=== PATIENT | male | born 1990 | race Caucasian/White ===

== ENCOUNTER 2018-03-24 21:08 | Emergency (ER) | payer MEDICAID ==
[~2018-03-24] VITALS: Ht 167.6 cm; Wt 72.6 kg
[~2018-03-24 21:08] MED LIST: CRUTCH4 USE; Cleocin HCl300 MG PO; HYDACE5 PO; NAPR500 PO; Norco 5-325 Ta1 EACH PO; PENVK500 PO; TRAM50 PO
== END 2018-03-24 23:05 | disposition home or self-care (01) ==
LOC: ER 21:08
DX: Z20.2 Contact with and (suspected) exposure to infections with a predominantly sexual mode of transmission (principal); F17.210 Nicotine dependence, cigarettes, uncomplicated
CPT/HCPCS: 96372; 99283; J0561; J0696

== ENCOUNTER 2019-05-23 04:02 | Emergency (ER) | payer OTHER | END 2019-05-23 05:00 | disposition left against medical advice (07) | LOC: ER 04:02 | DX: Z53.21 Procedure and treatment not carried out due to patient leaving prior to being seen by health care provider (principal) ==

== ENCOUNTER 2023-05-21 07:11 | Day surgery (SDC) | payer OTHER ==
[~2023-05-21] VITALS: Ht 167.6 cm; Wt 95.1 kg
[2023-05-21] VITALS (8 sets, daily range): BP systolic 114–158; BP diastolic 75–98
--- NOTE | 2023-05-21 08:14 | NUR ---
History, Chart, Medications and Allergies reviewed before start of procedure. Lungs clear T/O to Auscultation. Patient confirms NPO status and agrees with scheduled surgery. Pre-Op teaching done. Pt verbalizes understanding. Pre-Op teaching done. Pt verbalizes understanding. Patient reports completing Chlorhexadine shower X2 prior to admission to hospital.
--- NOTE | 2023-05-21 10:24 | NUR ---
REPORT RECIEVED. PT SITTING UP IN BED. VSS. ON ROOM AIR. DENIES PAIN
--- NOTE | 2023-05-21 10:34 | NUR ---
PT TOLERATING PO FLUDIS AND CHEESE/CRACKERS. REPORTS DISCOMFORT. PAIN MEDICATION ORDERS REVIEWED. VSS. ON ROOM AIR
--- NOTE | 2023-05-21 10:51 | NUR ---
Patient up to Ambulate independently. Gait steady. Discharge instructions reviewed with patient and Patient verbalizes understanding. Copy given to patient to take home. Dressing to procedure site clean, dry, intact with no visible drainage, swelling, erythema or bruising noted. Discharged via wheelchair to private car for ride home.
== END 2023-05-21 10:55 | disposition home or self-care (01) ==
LOC: ORSCMMR 07:11 → ORD 09:00 → ORSCMMR 09:00
PROVIDERS: Surgery
PROC: 0WUF0JZ Supplement Abdominal Wall with Synthetic Substitute, Open Approach (ICD-10-PCS; principal; 2023-05-21 09:00)
DX: K43.6 Other and unspecified ventral hernia with obstruction, without gangrene (principal); F17.210 Nicotine dependence, cigarettes, uncomplicated; F41.9 Anxiety disorder, unspecified; F32.A Depression, unspecified
CPT/HCPCS: A9270; C1781; J0690; J1100; J1885; J2250; J2405; J2704; J3010; J7120